=== PATIENT | female | born 1995 | race Caucasian/White ===

== ENCOUNTER 2016-05-10 12:43 | Emergency (ER) | payer MEDICAID ==
[~2016-05-10] VITALS: Ht 157.5 cm; Wt 56.4 kg
[~2016-05-10 12:43] MED LIST: NITR-58 PO; PHEN-538 PO
[2016-05-10 12:45] VITALS: Ht 157.5 cm; Wt 56.4 kg
[2016-05-10 16:06] LABS: ADD SCAN DIFF NO
[2016-05-10 16:23] LABS: ADD UMIC YES; URINE BILIRUBIN (Dip) NEGATIVE (NEGATIVE); URINE BLOOD (Dip) 3+ (NEGATIVE); URINE COLOR YELLOW (YELLOW); URINE GLUCOSE (Dip) NEGATIVE (NEGATIVE); URINE KETONES (Dip) TRACE (NEGATIVE); URINE LEUKOCYTE ESTERASE (Dip) NEGATIVE (NEGATIVE); URINE NITRITE (Dip) NEGATIVE (NEGATIVE); URINE TOTAL PROTEIN (Dip) TRACE (NEGATIVE); URINE UROBILINOGEN (Dip) 1.0 E.U./dL (0.1-1.0)
[2016-05-10 16:28] LABS: BASOPHIL # 0.1 10^3/ul (0.0-0.1); BASOPHILS % 0.5 % (0.0-2.0); EOSINOPHILS # 0.5 10^3/ul (0.0-0.5); EOSINOPHILS % 3.5 % (0.0-7.0); HEMATOCRIT 38.9 % (37.0-47.0); HEMOGLOBIN 12.8 g/dl (12.0-16.0); LYMPHOCYTES # 2.3 10^3/ul (0.8-2.9); LYMPHOCYTES % 17.5 % (15.0-51.0); MEAN CORPUSCULAR HEMOGLOBIN 30.1 pg (29.0-33.0); MEAN CORPUSCULAR HGB CONC 32.9 g/dl (32.0-37.0); MEAN CORPUSCULAR VOLUME 91.5 fl (82.0-101.0); MEAN PLATELET VOLUME 11.6 fl (7.4-10.4); MONOCYTE # 0.9 10^3/ul (0.3-0.9); MONOCYTES % 6.7 % (0.0-11.0); NEUTROPHIL # 9.2 10^3/ul (1.6-7.5); NEUTROPHILS % 71.5 % (39.0-77.0); PLATELET COUNT 249 10^3/UL (140-415); RED BLOOD COUNT 4.25 10^6/ul (4.20-5.40); RED CELL DISTRIBUTION WIDTH 12.4 % (11.5-14.5); WHITE BLOOD COUNT 12.9 10^3/ul (4.8-10.8)
[2016-05-10 16:55] LABS: SQUAMOUS EPITHELIAL CELL,UR MODERATE; URINE RBCS >50 /HPF (0)
[2016-05-10 16:56] LABS: BACTERIA,URINE FEW
--- NOTE | 2016-05-10 17:00 | RADRPT ---
PROCEDURE: US Pelvis. CLINICAL INDICATION: vaginal bleeding TECHNIQUE: Multiple sonographic images of the pelvis were obtained utilizing a transabdominal and endovaginal technique. The images were reviewed on a PACS workstation. COMPARISON: None. FINDINGS: The uterus is normal in size and demonstrates a normal appearance of the myometrium. The uterus harjit sures 8.4 x 4.1 x 4.8 cm. The endometrial stripe is homogeneous in appearance and has the thickness of 10 mm. No intrauterine gestation is noted. The ovaries are normal in size and echogenicity. Normal Doppler flow is identified in both ovaries. The right ovary measures 2.9 x 1.5 x 2.0 cm. The left ovary measures 3.2 x 2.0 x 2.5 cm. No free fluid is present within the pelvis.. RPTAT: AA IMPRESSION: No intrauterine gestation visualized. Differential diagnosis includes early , missed or ectopic . Follow-up ultrasound and HCG levels is recommended. .Jr Lennon MD, MD Date Time Electronically viewed and signed by .Jr Lennon MD, on 05/10/2016 17:00 .S/
--- NOTE | 2016-05-10 17:19 | ERD ---
ER Documentation Chief Complaint Date/Time DATE: 05/10/16 TIME: 17:18 Chief Complaint 6 WEEKS WITH SPOTTING HPI This 21-year-old female presents with some vaginal bleeding and cramping over the last 2 days. She is approximately 6 weeks by dates. She denies fevers, vomiting, urinary complaints. She is a G1 para 0. ROS All systems reviewed and are negative except as per history of present illness. Medications Home Meds Active Scripts Phenazopyridine Hcl* (Pyridium*) 200 Mg Tab, 200 MG PO TID Y for URINARY PAIN, # 6 TAB Prov:PEYMAN HACKETT PA-C 02/17/16 Nitrofurantoin Monohyd Macrocr* (Macrobid*) 100 Mg Capsr, 100 MG PO BID for 7 Days, CAP Prov:PEYMAN HACKETT PA-C 02/17/16 Allergies Allergies: Coded Allergies: No Known Drug Allergies (Verified Allergy, Unknown, 11/12/13) PMhx/Soc History of Surgery: No Anesthesia Reaction: No Hx Neurological Disorder: No Hx Respiratory Disorders: No Hx Cardiac Disorders: No Hx Psychiatric Problems: No Hx Miscellaneous Medical Probl: No Hx Alcohol Use: No Hx Substance Use: No Hx Tobacco Use: No Physical Exam Vitals Vital Signs Date Time Temp Pulse Resp B/P Pulse Ox O2 Delivery O2 Flow Rate FiO2 05/10/16 12:45 98.3 74 14 116/71 98 Physical Exam Const: [] Head: Atraumatic Eyes: Normal Conjunctiva ENT: Normal External Ears, Nose and Mouth. Neck: Full range of motion..~ No meningismus. Resp: Clear to auscultation bilaterally Cardio: Regular rate and rhythm, no murmurs Abd: Soft, non tender, non distended. Normal bowel sounds Skin: No petechiae or rashes Back: No midline or flank tenderness Ext: No cyanosis, or edema Neur: Awake and alert Psych: Normal Mood and Affect Result Diagram: 05/10/16 4795 Results 24 hrs Laboratory Tests Test 05/10/16 15:57 Basophils # 0.110^3/ul Basophils % 0.5% Beta HCG, Quantitative 172.7mIU/ml Eosinophils # 0.510^3/ul Eosinophils % 3.5% Hematocrit 38.9% Hemoglobin 12.8g/dl Lymphocytes # 2.310^3/ul Lymphocytes % 17.5% Mean Corpuscular Hemoglobin 30.1pg Mean Corpuscular Hemoglobin Concent 32.9g/dl Mean Corpuscular Volume 91.5fl Mean Platelet Volume 11.6fl Monocytes # 0.910^3/ul Monocytes % 6.7% Neutrophils # 9.210^3/ul Neutrophils % 71.5% Nucleated Red Blood Cells # 0.010^3/ul Nucleated Red Blood Cells % 0.0/100WBC Platelet Count 68869^3/UL Red Blood Count 4.2510^6/ul Red Cell Distribution Width 12.4% Urine Bacteria FEW Urine Bilirubin NEGATIVE Urine Clarity CLOUDY Urine Color YELLOW Urine Glucose NEGATIVE% Urine Hemoglobin 3+ Urine Ketones TRACE Urine Leukocyte Esterase NEGATIVE Urine Microscopic RBC >50/HPF Urine Microscopic WBC 0-2/HPF Urine Nitrite NEGATIVE Urine Specific [place] 1.020 Urine Squamous Epithelial Cells MODERATE Urine Total Protein TRACE Urine Urobilinogen 1.0 E.U./dL Urine pH 6.0 White Blood Count 12.910^3/ul Procedures/MDM Patient's quantitative hCG is 172. Patient is Rh+. Pelvic ultrasound shows no identifiable intrauterine and no evidence of adnexal . Patient was not ill-appearing amatory throughout the ED course. Patient presents with vaginal bleeding first trimester . Differential includes complete , ectopic , early normal although findings and history suspicious for complete . Recommending additional hCG check in 2-3 days. Patient otherwise return sooner for worsening pain, bleeding, new worsening symptoms. She should otherwise see her primary doctor OB this week. Departure Diagnosis: Primary Impression: Vaginal bleeding in patient at less than 20 weeks ges... Condition: Stable Patient Instructions: Bleeding During Early , Miscarriage, Spontaneous (Completed) Additional Instructions: No identified on ultrasound. Hormone levels are very low. Recommend additional hormone check in 2-3 days. Recheck otherwise for new or worsening symptoms. RAFIQ HDEZ MD May 10, 2016 17:19
[2016-05-10 17:31] VITALS: BP 109/73; PULSE 66; RESP 14; TEMP 98.3
== END 2016-05-10 17:32 | disposition home or self-care (01) ==
LOC: FTE 12:43
DX: O20.9 Hemorrhage in early pregnancy, unspecified (principal); Z3A.01 Less than 8 weeks gestation of pregnancy
CPT/HCPCS: 36415; 76801; 76817; 81001; 81003; 84702; 85025; 86900; 86901; Z7502

== ENCOUNTER 2017-09-04 17:44 | Emergency (ER) | END 2017-09-04 22:39 | disposition home or self-care (01) ==